=== PATIENT | female | born 1985 | race Two or more races ===

== ENCOUNTER 2017-10-27 09:57 | Day surgery (SDC) | payer BC, MEDICAID ==
[~2017-10-27 09:57] MED LIST: Buffered Lidocaine 0.9% SYRIN* 5 ML/SYR SYRINGE INTRADERM ONE
[2017-10-27] MEDS ORDERED: Bupivacaine 0.25% SDV* 30 ML ONE ×3 (11:51→13:09)
[2017-10-27] MEDS ORDERED: Midazolam* 1 MG/ML 2 ML VIAL (2 MG) ONE (12:32)
[2017-10-27] MEDS ORDERED: fentaNYL* 50 MCG/ML 2 ML VIAL (100 MCG VIAL) ONE (12:32)
[2017-10-27] MEDS ORDERED: Ketorolac INJ* 30 MG/ML 1 ML VIAL IV PRN (12:33)
[2017-10-27] MEDS ORDERED: PROCHLORPERAZINE INJ 5 MG/ML 2 ML VIAL IV PRN (12:33)
[2017-10-27] MEDS ORDERED: fentaNYL* 50 MCG/ML 2 ML VIAL (100 MCG VIAL) IV PRN (12:33)
[2017-10-27] MEDS ORDERED: HYDROcodone/ACETAMIN 5-325 MG* 1 TAB PO PRN (12:33)
[2017-10-27] MEDS ORDERED: oxyCODONE/Acetamin 5/325 MG* TAB PO PRN (12:33)
[2017-10-27] MEDS ORDERED: Propofol* 10 MG/ML 20 ML BTL IV PUSH ONE (12:41)
[2017-10-27] MEDS ORDERED: Lidocaine 2% PF * 5 ML VIAL ONE (12:41)
[2017-10-27 13:26] VITALS: BP 131/78
--- NOTE | 2017-11-02 08:47 | OP ---
DATE OF OPERATION: 10/27/17 [facility] DATE OF : 89 SURGEON: Gume Zimmerman MD. LUMBER PILER OPERATOR: KRISTYN Ritter. ANESTHESIOLOGIST: ANESTHESIA: Local MAC. PRE-OP DIAGNOSIS: Right carpal tunnel syndrome. POST-OP DIAGNOSIS: Right carpal tunnel syndrome. OPERATIVE PROCEDURE: Right carpal tunnel release. INDICATIONS: Maddy had progressive carpal tunnel syndrome. We talked about risks and benefits, she wanted to proceed. FINDINGS: As expected. ESTIMATED BLOOD LOSS: 2 mL. COMPLICATIONS: None. DESCRIPTION OF PROCEDURE: Maddy was seen in the preoperative area. The correct site, side, and procedure were identified. We came back to the operating room. The arm was prepped and draped. A time-out was performed. I made a 2 to 3-cm longitudinal incision in the standard location for an open carpal tunnel release. Dissection was carried down through the subcutaneous tissue in the palmar fascia. Transverse carpal ligament was released off the radial aspect of the hook of the hamate. The release was completed distally. Proximally, the subcutaneous tissue and fascia was released and retracted with a Olegario retractor. The remainder of the transverse carpal ligament and distal antebrachial fascia was released with tenotomy scissors under direct visualization. I checked the release, once it was complete distally and proximally and there was absolutely no compression on the nerve, I irrigated out the wound. Skin was closed with 3-0 Monocryl suture. Wound was dressed with Xeroform, 4x4s, sterile Webril, and an Barrie bandage. She was then woken up and taken to recovery room in stable condition. [id number]/[facility] #: [id number] [facility]
== END 2017-10-27 13:47 | disposition home or self-care (01) ==
LOC: OREAST 09:57
PROVIDERS: ATTEND Orthopaedic Surgery Hand Surgery
DX: G56.01 Carpal tunnel syndrome, right upper limb (principal); Z87.891 Personal history of nicotine dependence; G62.9 Polyneuropathy, unspecified; I10 Essential (primary) hypertension; E03.9 Hypothyroidism, unspecified; Z68.43 Body mass index [BMI] 50.0-59.9, adult
CPT/HCPCS: 81025; J2250; J2704; J3010